=== PATIENT | male | born 1995 | race Caucasian/White ===

== ENCOUNTER 2018-11-15 02:25 | Emergency (ER) | payer BC ==
[~2018-11-15] VITALS: Ht 195.6 cm; Wt 117.9 kg
[2018-11-15] MEDS: RT-ALBUTEROL/IPRATROPIUM 3 ML (DUONEB) VIAL INH ONE (04:15)
[2018-11-15] MEDS: LACTATED RINGERS 1,000 ML IV ONE (04:35)
[2018-11-15] MEDS: KETOROLAC 30 MG/ML VIAL IVP ONE (04:42)
[2018-11-15] MEDS: ONDANSETRON 4 MG/2 ML (SDV) Z0FRAN IVP ONE (04:43)
[2018-11-15 04:44] LABS: BASOPHILS % (AUTO) 0 % (0-10); EOSINOPHILS % (AUTO) 0 % (0-10); HEMATOCRIT 39 % (40-54); HEMOGLOBIN 14.3 G/DL (13.3-17.7); LYMPHOCYTES # (AUTO) 0.8 X 10^3 (1.0-4.0); LYMPHOCYTES % (AUTO) 8 % (12-44); MEAN CORPUSCULAR HEMOGLOBIN 31 PG (25-34); MEAN CORPUSCULAR HGB CONC 37 G/DL (32-36); MEAN CORPUSCULAR VOLUME 86 FL (80-99); MEAN PLATELET VOLUME 8.2 FL (7.4-10.4); MONOCYTES # (AUTO) 0.2 X 10^3 (0.0-1.0); MONOCYTES % (AUTO) 2 % (0-12); NEUTROPHILS # (AUTO) 9.4 X 10^3 (1.8-7.8); NEUTROPHILS % (AUTO) 90 % (42-75); PLATELET COUNT 310 10^3/uL (130-400); RED CELL DISTRIBUTION WIDTH 11.2 % (10.0-14.5); WHITE BLOOD COUNT 10.4 10^3/uL (4.3-11.0)
[2018-11-15] MEDS: cefTRIAXone FOR IV USE 1,000 MG in WATER (STERILE) FOR INJECTION 10 ML IV ONE (04:45)
[2018-11-15 04:57] LABS: BAND NEUTROPHILS 2 %; BASOPHILS % (MANUAL) 0 %; EOSINOPHILS % (MANUAL) 0 %; LYMPHOCYTES % (MANUAL) 7 %; MONOCYTES % (MANUAL) 0 %; NEUTROPHILS % (MANUAL) 91 %; RBC MORPH NORMAL
[2018-11-15 05:01] LABS: ALANINE AMINOTRANSFERASE 115 U/L (0-55); ALBUMIN 4.4 GM/DL (3.2-4.5); ALKALINE PHOSPHATASE 52 U/L (40-136); BILIRUBIN,TOTAL 1.4 MG/DL (0.1-1.0); BUN/CREATININE RATIO 14; CALCIUM 9.9 MG/DL (8.5-10.1); CARBON DIOXIDE 21 MMOL/L (21-32); CHLORIDE 101 MMOL/L (98-107); CREATININE SERUM 0.79 MG/DL (0.60-1.30); GFR ESTIMATED > 60; GLUCOSE 115 MG/DL (70-105); POTASSIUM 3.6 MMOL/L (3.6-5.0); SODIUM 137 MMOL/L (135-145); TOTAL PROTEIN 8.1 GM/DL (6.4-8.2)
--- NOTE | 2018-11-15 05:32 | ED General ---
General Chief Complaint: Fever-Adult/Adol Stated Complaint: COUGHING,FEVER,VOMITING Source of Information: Patient Exam Limitations: No Limitations History of Present Illness Date Seen by Provider: Nov 15, 2018 Time Seen by Provider: 03:13 Initial Comments This 23-year-old young man presents to emergency room with complaints of fever for the past week with shortness of breath and cough. He presented to the urgent care clinic where he was told his flu swab showed "a little strand of flu". He was evaluated with an x-ray and was told he had pneumonia and/or bronchitis. He was started on azithromycin and prescribed prednisone. He has not started the prednisone but he has had 2 doses of azithromycin. He also re ports lab work was performed at urgent care and he was found to have elevated liver markers. He has also experienced some nausea and vomiting. Allergies and Home Medications Allergies Coded Allergies: Sulfa (Sulfonamide Antibiotics) (Verified Allergy, Unknown, 11/15/18) Home Medications Albuterol Sulfate 1 Puff Puff, 2 PUFF IH Q4H PRN for SHORTNESS OF BREATH 1 PUFF = 90 MCG Prescribed by: ALDEN HANSON on 11/15/18 0534 Ondansetron 4 Mg Tab.rapdis, 4 MG PO Q4H PRN for NAUSEA/VOMITING Prescribed by: ALDEN HANSON on 11/15/18 0534 Patient Home Medication List Home Medication List Reviewed: Yes Review of Systems Review of Systems Constitutional: see HPI EENTM: no symptoms reported Respiratory: see HPI, cough Cardiovascular: no symptoms reported Gastrointestinal: see HPI Genitourinary: no symptoms reported Musculoskeletal: no symptoms reported Skin: no symptoms reported Psychiatric/Neurological: No Symptoms Reported Past Ceujzca-Gadgon-Vgyxar Hx Past Med/Social Hx: Reviewed and Corrections made Patient Social History Recent Foreign Travel: No Contact w/Someone Who Travel: No Past Medical History Surgeries: Yes Orthopedic (Anterior cruciate ligament, meniscus,) Respiratory: No Cardiac: No Neurological: No Genitourinary: No Gastrointestinal: No Musculoskeletal: No Endocrine: No HEENT: No Cancer: No Psychosocial: No Physical Exam Vital Signs Vital Signs - First Documented 11/15/18 11/15/18 03:32 04:16 Temp 102.3 Pulse 104 Resp 24 B/P (MAP) 156/96 (116) Pulse Ox 94 O2 Delivery Room Air Capillary Refill : Height, Weight, BMI Height: '" Weight: lbs. oz. 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 Norm as Tested Skin: Normal Color, Diaphoresis Progress/Results/Core Measures Suspected Sepsis SIRS Temperature: Pulse: Respiratory Rate: Laboratory Tests 11/15/18 04:35: White Blood Count 10.4 Blood Pressure / Mean: Laboratory Tests 11/15/18 04:35: Creatinine 0.79, Platelet Count 310, Total Bilirubin 1.4H Results/Orders Lab Results Laboratory Tests Test 11/15/18 04:35 Range/Units White Blood Count 10.4 4.3-11.0 10^3/uL Red Blood Count 4.58 4.35-5.85 10^6/uL Hemoglobin 14.3 13.3-17.7 G/DL Hematocrit 39 L 40-54 % Mean Corpuscular Volume 86 80-99 FL Mean Corpuscular Hemoglobin 31 25-34 PG Mean Corpuscular Hemoglobin Concent 37 H 32-36 G/DL Red Cell Distribution Width 11.2 10.0-14.5 % Platelet Count 310 130-400 10^3/uL Mean Platelet Volume 8.2 7.4-10.4 FL Neutrophils (%) (Auto) 90 H 42-75 % Lymphocytes (%) (Auto) 8 L 12-44 % Monocytes (%) (Auto) 2 0-12 % Eosinophils (%) (Auto) 0 0-10 % Basophils (%) (Auto) 0 0-10 % Neutrophils # (Auto) 9.4 H 1.8-7.8 X 10^3 Lymphocytes # (Auto) 0.8 L 1.0-4.0 X 10^3 Monocytes # (Auto) 0.2 0.0-1.0 X 10^3 Eosinophils # (Auto) 0.0 0.0-0.3 10^3/uL Basophils # (Auto) 0.0 0.0-0.1 10^3/uL Neutrophils % (Manual) 91 % Lymphocytes % (Manual) 7 % Monocytes % (Manual) 0 % Eosinophils % (Manual) 0 % Basophils % (Manual) 0 % Band Neutrophils 2 % Blood Morphology Comment NORMAL Sodium Level 137 135-145 MMOL/L Potassium Level 3.6 3.6-5.0 MMOL/L Chloride Level 101 98-107 MMOL/L Carbon Dioxide Level 21 21-32 MMOL/L Anion Gap 15 H 5-14 MMOL/L Blood Urea Nitrogen 11 7-18 MG/DL Creatinine 0.79 0.60-1.30 MG/DL Estimat Glomerular Filtration Rate > 60 BUN/Creatinine Ratio 14 Glucose Level 115 H 70-105 MG/DL Calcium Level 9.9 8.5-10.1 MG/DL Corrected Calcium 9.6 8.5-10.1 MG/DL Total Bilirubin 1.4 H 0.1-1.0 MG/DL Aspartate Amino Transf (AST/SGOT) 58 H 5-34 U/L Alanine Aminotransferase (ALT/SGPT) 115 H 0-55 U/L Alkaline Phosphatase 52 40-136 U/L Total Protein 8.1 6.4-8.2 GM/DL Albumin 4.4 3.2-4.5 GM/DL Micro Results Microbiology 11/15/18 Influenza Types A,B Antigen ([facility]) - Final, Complete My Orders Orders - ALDEN VALENCIA MD Influenza A And B Antigens (11/15/18 03:13) Cbc With Automated Diff (11/15/18 03:59) Comprehensive Metabolic Panel (11/15/18 03:59) Albuterol/Ipra Inhalation Soln (Duoneb I (11/15/18 04:00) Svn Small Volume Nebulizer (11/15/18 03:59) Ed Iv/Invasive Line Start (11/15/18 03:59) Lactated Ringers (Lr 1000 Ml Iv Solution (11/15/18 03:59) Ketorolac Injection (Toradol Injection) (11/15/18 04:00) Ondansetron Injection (Zofran Injectio (11/15/18 04:00) Chest Pa/Lat (2 View) (11/15/18 03:59) Ceftriaxone For Iv Use (Rocephin For I (11/15/18 04:30) Manual Differential (11/15/18 04:35) Medications Given in ED Vital Signs/I&O Capillary Refill : Progress Note : Progress Note Patient was hydrated with a liter of LR. Zofran was given for nausea. Toradol was given for pain. Chest x-ray revealed pneumonia. Flu swab was negative. He received a DuoNeb treatment which improved his breathing somewhat. He was given a gram of Rocephin after pneumonia was identified. Diagnostic Imaging Diagonstic Imaging: Xray Plain Films/CT/US/NM/MRI: chest Comments Two-view chest x-ray viewed by me. Report not yet available. There were patchy infiltrates in the right middle and lower lobe and the left lower lobe. Departure Impression Primary Impression: Pneumonia Qualified Codes: J18.9 - Pneumonia, unspecified organism Additional Impressions: Nausea and vomiting Qualified Codes: R11.2 - Nausea with vomiting, unspecified Elevated liver enzymes Disposition: HOME, SELF-CARE Condition: Improved Departure-Patient Inst. Decision time for Depature: 05:30 Referrals: [facility] (PCP/Family) Primary Care Physician Patient Instructions: Pneumonia in Adults Add. Discharge Instructions: Complete your antibiotics as prescribed. For pain and fever or you may take ibuprofen up to 600 mg every 6 hours as needed and Tylenol (acetaminophen) up to 1000 mg every 6 hours. Use your inhaler as needed for shortness of breath, uncontrolled cough, or wheezing. Work toward quitting nicotine products, You may start the prednisone prescribed earlier if you so choose. This may help reduce cough and shortness of breath. Return to the emergency room if you have worsening symptoms. Follow-up with your primary care provider for monitoring of your liver markers. Working toward slow weight loss and avoiding alcohol may help return to your liver markers to normal. All discharge instructions reviewed with patient and/or family. Voiced understanding. Scripts Albuterol Sulfate (PROAIR HFA) 1 Puff Puff 2 PUFF IH Q4H PRN for SHORTNESS OF BREATH, #1 PUFF 1 PUFF = 90 MCG Prov: ALDEN VALENCIA MD 11/15/18 Ondansetron (Ondansetron Odt) 4 Mg Tab.rapdis 4 MG PO Q4H PRN for NAUSEA/VOMITING, #10 TAB Prov: ALDEN VALENCIA MD 11/15/18 Work/School Note: School/Childcare Release Date Seen in the Emergency Department: Nov 15, 2018 Return to School: Nov 17, 2018 Restrictions: No Restrictions ALDEN VALENCIA MD Nov 15, 2018 05:32
[2018-11-15] MEDS ORDERED: RT-ALBUINH IH (05:34)
[2018-11-15] MEDS ORDERED: ONDA4TAB11 PO (05:34)
[2018-11-15 05:45] VITALS: BP 158/95
--- NOTE | 2018-11-15 06:25 | Diagnostic Imaging Report ---
INDICATION: Fever. TECHNIQUE: Two views of the chest COMPARISON: None. FINDINGS: Patchy opacities are seen in the bilateral perihilar and right upper and lower lobes. No focal consolidations. No pulmonary mass. Normal cardiac silhouette. No large pleural effusion or pneumothorax. No acute osseous abnormalities. IMPRESSION: Patchy opacities throughout the right lung and in the left perihilar region. This is suspicious for pneumonia. No pleural effusion. Dictated by: Dictated on workstation # [id number]
== END 2018-11-15 05:45 | disposition home or self-care (01) ==
LOC: ER 02:32
DX: J18.9 Pneumonia, unspecified organism (principal); R11.2 Nausea with vomiting, unspecified; R74.8 Abnormal levels of other serum enzymes; Z88.2 Allergy status to sulfonamides
CPT/HCPCS: 36415; 71046; 80053; 85007; 85027; 87804; 94640

== ENCOUNTER → 2022-10-17 | Outpatient (CLI) | payer BC ==
[~2022-10-17] MED LIST: ALBU8.5H6 IH; CATHETER FLUSH 10 ML SYR IV PRN; HOLD METFORMIN - RECEIVED CONTRAST 20 ML VIAL IV SCH; IOHEXOL 350 MG/ML 100 ML (OMNIPAQUE 350) VIAL IV ONE; NS 100 ML (IVPB) BAG IV ONE; ONDA4TAB11 PO
--- NOTE | 2022-10-17 09:04 | Diagnostic Imaging Report ---
EXAMINATION: CT abdomen and pelvis with intravenous contrast. TECHNIQUE: Multiple contiguous axial images were obtained through the abdomen and pelvis after the uneventful administration of intravenous contrast. All CT scans use one or more of the following dose optimizing techniques: automated exposure control, MA and/or KvP adjustment based on patient size and exam type or iterative reconstruction. HISTORY: Right upper quadrant pain. COMPARISON: None available. FINDINGS: Lung bases: The lung bases are clear. Solid organs: There is diffuse hypoattenuation of the liver which is due to hepatic steatosis. The gallbladder is normal. There is no biliary ductal dilation. Pancreas is normal. Spleen is normal. Adrenal glands are normal. The kidneys are normal without hydronephrosis. Bowel: The stomach and small bowel are normal without obstruction. There may be some mild wall thickening seen throughout the colon. The appendix is normal. Peritoneum: There is no intraperitoneal free fluid or free air. No suspicious lymphadenopathy. Vasculature: Normal without aneurysm. Musculoskeletal: No suspicious osseous lesion or compression fracture. Pelvis: The prostate gland is normal. The urinary bladder is normal. IMPRESSION: 1. Mild wall thickening of the colon which could be secondary to decompressed state although an infectious or inflammatory colitis could have a similar appearance in the appropriate clinical setting. 2. Hepatic steatosis. Dictated by: Dictated on workstation # [id number]
== END ==
LOC: RAD 08:22
PROVIDERS: ATTEND Nurse Practitioner Family
DX: K59.1 Functional diarrhea (principal); R10.11 Right upper quadrant pain; R10.83 Colic; R14.0 Abdominal distension (gaseous)
CPT/HCPCS: 74177